=== PATIENT | female | born 1980 | race American Indian/Alaskan Native ===

== ENCOUNTER 2016-11-17 05:03 | Emergency (ER) | payer MEDICAID ==
[2016-11-17 05:17] VITALS: BP 130/93
[2016-11-17] MEDS ORDERED: TORADOL ONE (06:30)
[2016-11-17] MEDS ORDERED: NACL 0.9% 500 ML IR ONE (06:30)
[2016-11-17] MEDS ORDERED: XYLOCAINE 2% INFILTRATI ONE ×2 (06:33→06:42)
--- NOTE | 2016-11-17 06:39 | Emergency Department Report ---
ED Lower Extremity HPI - General Chief Complaint: Extremity Injury, Lower Stated Complaint: LAC LF LEG Time Seen by Provider: 11/17/16 06:30 Source: patient Mode of arrival: Ambulatory Limitations: No Limitations - History of Present Illness Initial Comments: Patient presents for eval of cuts to both legs few hours ago. States she fell into a glass table that was repositioned during home rearrangement. States table broken in pieces. Denies head injury, LOC, N/V. Denies symptoms prior to fall. LMP 11/12/16 - Related Data Previous Rx's Medication Instructions Recorded Last Taken Type Ibuprofen [Motrin] 800 mg PO Q8HR PRN #30 tablet 11/17/16 Unknown Rx traMADol [Ultram 50 MG tab] 50 mg PO Q4HR PRN #15 tablet 11/17/16 Unknown Rx Allergies Allergy/AdvReac Type Severity Reaction Status Date / Time No Known Allergies Allergy Unverified 11/17/16 05:17 ED Review of Systems ROS: Stated complaint: LAC LF LEG Other details as noted in HPI Comment: All other systems reviewed and negative ED Past Medical Hx - Past Medical History Additional medical history: palpitations, [id number] - Social History Smoking Status: Current Every Day Smoker Substance Use Type: None - Medications Home Medications: Home Medications Medication Instructions Recorded Confirmed Last Taken Type Ibuprofen [Motrin] 800 mg PO Q8HR PRN #30 tablet 11/17/16 Unknown Rx traMADol [Ultram 50 MG tab] 50 mg PO Q4HR PRN #15 tablet 11/17/16 Unknown Rx ED Physical Exam - General Limitations: No Limitations General appearance: alert, in no apparent distress - Head Head exam: Present: atraumatic, normocephalic, normal inspection - Eye Eye exam: Present: normal appearance, PERRL, EOMI, scleral icterus, conjunctival injection, periorbital swelling, periorbital tenderness - Neck Neck exam: Present: normal inspection, full ROM. Absent: tenderness, meningismus, lymphadenopathy - Respiratory Respiratory exam: Present: normal lung sounds bilaterally. Absent: respiratory distress, chest wall tenderness - Cardiovascular Cardiovascular Exam: Present: regular rate, normal rhythm - GI/Abdominal GI/Abdominal exam: Present: soft. Absent: tenderness - Extremities Exam Extremities exam: Present: full ROM, tenderness (b/l LE more so in anterior L tibia.), normal capillary refill, other (multiple other abrasions to b/l LE.). Absent: normal inspection (11 cm lac to left anterior tibia.), pedal edema, joint swelling, calf tenderness - Neurological Exam Neurological exam: Present: alert, oriented X3, abnormal gait (antalgic), reflexes normal. Absent: motor sensory deficit - Psychiatric Psychiatric exam: Present: normal affect, normal mood - Skin Skin exam: Present: warm, dry, abrasion. Absent: intact (LLE Lac as mentioned above.), cyanosis, diaphoretic (b/l LE), petechiae, pallor ED Course Vital Signs 11/17/16 05:10 Temperature 97.5 F L Pulse Rate 101 H Blood Pressure 130/93 O2 Sat by Pulse 100 Oximetry - Laceration /Wound Repair Left Anterior Leg Wound Location: lower extremity (left anterior tibia) Wound Length (cm): 11 Wound's Depth, Shape: superficial, linear Wound Explored: foreign body removed (glass pieces) Irrigated w/ Saline (ccs): 200 Betadine Prep?: Yes Anesthesia: 1% Lidocaine Volume Anesthetic (ccs): 14 Wound Debrided: extensive Wound Repaired With: sutures Suture Size/Type: 4:0 Number of Sutures: 20 Layer Closure?: No Sterile Dressing Applied?: Yes Progress: Patient tolerated procedure and progressed well. ED Lower Extremity MDM - Medical Decision Making 36 YOF with laceration to L anterior knee and other multiple abrasions to b/l extremities. Patient is stable. Laceration closed successfully. Rests of abrasions cleaned and all wounds dressed sterile. Patient is stable. She will be DC'd on appropriate pain management tx (see rx). Patient education, follow- up/return instructions provided. She verbalized understanding and is agreeable to plan. Critical care attestation.: If time is entered above; I have spent that time in minutes in the direct care of this critically ill patient, excluding procedure time. ED Disposition Clinical Impression: Laceration of left lower leg Qualifiers: Encounter type: initial encounter Qualified Code(s): S81.812A - Laceration without foreign body, left lower leg, initial encounter Abrasion of lower extremity Qualifiers: Encounter type: initial encounter Laterality: unspecified laterality Qualified Code(s): S80.819A - Abrasion, unspecified lower leg, initial encounter Disposition: DISCHARGED TO HOME OR SELFCARE Is pt being admited?: No Does the pt Need Aspirin: No Condition: Stable Instructions: Suture Care (ED), Acute Wound Care (ED) Additional Instructions: You were evaluated today after an incident in which you sustained laceration and multiple abrasions to both legs. Examination shows no visible or palpable deformities, normal motor function and sensation with normal reflexes. Left leg lacerations was closed with stitches that need to be taken out in 10 days. Follow instructions for care. Do not apply any additional lotions, creams or other topical medications for 5-7 days. May take Motrin as needed for pain. Monitor closely for 24-48 hours after incident for acute changes in behavior or physical function. Encourage rest, normal intake of food and liquid and return to function as tolerated. Follow-up with primary physician in 2-3 days. Return to emergency department for any new or worsening symptoms. Otherwise, return in 10 days for suture removal. Prescriptions: Ibuprofen [Motrin] 800 mg PO Q8HR PRN #30 tablet PRN Reason: Pain traMADol [Ultram 50 MG tab] 50 mg PO Q4HR PRN #15 tablet PRN Reason: Pain Referrals: [facility] [Outside] - 2-3 Days
--- NOTE | 2016-11-17 06:41 | XRay Report ---
FINAL REPORT PROCEDURE: XR TIBIA FIBULA 2V LT TECHNIQUE: LEFT tibia and fibula radiographs, AP and lateral views. CPT 68375 HISTORY: fall/glass/pain COMPARISON: No prior studies are available for comparison. FINDINGS: Fracture (s) and/or Dislocation(s): None . Joint space(s): Normal . Soft tissues: There is soft tissue injury identified along the anterior mid tibial region.. Bone mineralization: Normal . Foreign bodies: None . IMPRESSION: No evidence of acute fracture dislocation. Soft tissue injury along the anterior mid tibial region..
[2016-11-17] MEDS ORDERED: NACL 0.9% IR ONE (06:42)
[2016-11-17] MEDS ORDERED: TORADOL IM ONE (06:42)
--- NOTE | 2016-11-17 06:42 | XRay Report ---
FINAL REPORT PROCEDURE: XR KNEE 1-2V RT TECHNIQUE: RIGHT knee radiographs, AP and lateral views. CPT 66223 HISTORY: fall/glass/pain COMPARISON: No prior studies are available for comparison. FINDINGS: Fracture (s) and/or Dislocation(s): None . Alignment: Normal . Joint space(s): Normal . Soft tissues: Normal . Bone mineralization: Normal . Foreign bodies: None . IMPRESSION: Normal Examination.
== END 2016-11-17 07:50 | disposition home or self-care (01) ==
LOC: ED 05:03
DX: S81.812A Laceration without foreign body, left lower leg, initial encounter (principal); S80.811A Abrasion, right lower leg, initial encounter; S80.812A Abrasion, left lower leg, initial encounter; F17.200 Nicotine dependence, unspecified, uncomplicated; W18.39XA Other fall on same level, initial encounter; Y93.89 Activity, other specified; Y99.9 Unspecified external cause status; Y92.89 Other specified places as the place of occurrence of the external cause
CPT/HCPCS: 12034; 73560; 73590; 96372; 99283; J1885